=== PATIENT | male | born 1970 | race Caucasian/White ===

== ENCOUNTER 2018-04-09 06:20 | Observation (INO) | payer OTHER, BC ==
[2018-04-09] MEDS ORDERED: PROPOFOL 20 ML ×2 (07:30→08:26)
[2018-04-09] MEDS ORDERED: LACTATED RINGER'S 1,000 ML IV* (07:30)
[2018-04-09] MEDS ORDERED: CEFAZOLIN 2 GM/50 ML (PMX) 50 ML IVPB (07:30)
[2018-04-09] MEDS ORDERED: MIDAZOLAM 1 MG/ML 2 ML INJ (07:30)
[2018-04-09] MEDS ORDERED: FENTAnyl 50 MCG/ML VIAL (07:30)
[2018-04-09] MEDS ORDERED: SUCCINYLCHOLINE CHLORIDE 100 MG/5 ML SYG IV (07:30)
[2018-04-09] MEDS ORDERED: LIDOCAINE 2% (SDV) 5 ML INJ (07:30)
[2018-04-09] MEDS ORDERED: ROCURONIUM 50 MG INJ ×2 (07:30→09:06)
[2018-04-09] MEDS ORDERED: FAMOTIDINE 20 MG INJ (07:44)
[2018-04-09] MEDS ORDERED: DEXAMETHASONE 4 MG/ML 1 ML INJ (07:44)
[2018-04-09] MEDS ORDERED: ONDANSETRON 4 MG INJ (07:44)
[2018-04-09] MEDS ORDERED: CEFAZOLIN 1 GM INJ (07:44)
[2018-04-09] MEDS ORDERED: PHENYLephrine (100 MCG/ML) 5ML SYG (08:05)
[2018-04-09] MEDS: POLYMYXIN/BACITRACIN 1L IRRIG (08:17)
[2018-04-09] MEDS: THROMBIN 5000 UNIT VIAL (08:17)
[2018-04-09] MEDS: GELATIN SIZE 100 SPONGE (08:17)
[2018-04-09] MEDS: BUPIVACAINE 0.25%/EPI (SDV) 10 ML INJ (08:17)
[2018-04-09] MEDS ORDERED: DIPHENHYDRAMINE 50 MG INJ IV (08:30)
[2018-04-09] MEDS ORDERED: MEPERIDINE 25 MG INJ IV (08:30)
[2018-04-09] MEDS ORDERED: PROCHLORPERAZINE 10 MG INJ IV (08:30)
[2018-04-09] MEDS ORDERED: HYDROmorphONE 1 MG/5 ML IV SYRINGE IV (08:30)
[2018-04-09] MEDS ORDERED: FENTAnyl 50 MCG/ML VIAL IV ×3 (08:30)
[2018-04-09] MEDS ORDERED: OXYCODONE/ACETAMINOPHEN (5/325) TAB PO (08:30)
[2018-04-09] MEDS ORDERED: GLYCOPYRROLATE 0.4 MG INJ (10:19)
[2018-04-09] MEDS ORDERED: NEOSTIGMINE 3 MG/3 ML SYRINGE (10:19)
[2018-04-09] MEDS ORDERED: HYDROmorphONE 2 MG/ML SYG (10:20)
[2018-04-09] MEDS ORDERED: EPHEDrine SULFATE 50 MG/5 ML SYG (10:30)
[2018-04-09] MEDS ORDERED: HYDROCODONE/APAP (5/325) TAB PO (11:00)
[2018-04-09] MEDS ORDERED: ACETAMINOPHEN 325 MG TAB PO (11:00)
[2018-04-09] MEDS ORDERED: NALOXONE (0.4 MG/ML) INJ IV (11:00)
[2018-04-09] MEDS ORDERED: PROCHLORPERAZINE 10 MG TAB PO (11:00)
[2018-04-09] MEDS ORDERED: NACL 0.9% 3 ML SYG IV (11:00)
[2018-04-09] MEDS: HYDROmorphONE 1 MG/5 ML IV SYRINGE IV ×2 (11:04→11:18)
[2018-04-09] MEDS: ONDANSETRON 4 MG INJ IV ×2 (11:04→12:08)
[2018-04-09] MEDS ORDERED: HYDROmorphONE 0.5 MG/0.5 ML SYG IV (11:30)
[2018-04-09] MEDS: CEFAZOLIN 1 GM/50 ML (PMX) 50 ML IVPB ×3 (12:09→23:10)
[2018-04-09] MEDS: METOCLOPRAMIDE 10 MG INJ IV (14:30)
[2018-04-09] MEDS: HYDROCODONE/APAP (5/325) TAB PO ×2 (17:57→23:09)
[2018-04-09] MEDS: ZOLPIDEM 5 MG TAB PO (23:55)
[2018-04-10] MEDS: CEFAZOLIN 1 GM/50 ML (PMX) 50 ML IVPB (06:06)
[2018-04-10] MEDS: HYDROCODONE/APAP (5/325) TAB PO ×2 (07:02→11:08)
== END 2018-04-10 13:24 | disposition home or self-care (01) ==
LOC: SDS 06:20 → REC 10:43 → MS1 12:06
DX: M51.16 Intervertebral disc disorders with radiculopathy, lumbar region (principal); I10 Essential (primary) hypertension; E78.5 Hyperlipidemia, unspecified
CPT/HCPCS: 63030; 72100; 88304; 97116; 97161; 97530; 99217